=== PATIENT | female | born 1995 | race Caucasian/White ===

== ENCOUNTER 2019-08-10 11:13 | Emergency (ER) | payer SELFPAY ==
--- NOTE | 2019-08-10 11:15 | ER Document Report ---
HPI - HPI Time Seen by Provider: 08/10/19 11:14 Notes: 24-year-old female presents emergency room today with complaints of right ear pain for the last 4 days. Pain is 3/10, throbbing achy. Patient is not a smoker. Tried some [id number] drops without relief. Denies any trauma to ears. Worse with time, nothing makes better. Denies fevers, chills, chest pain,palpitations, shortness of breath, dyspnea, nausea, vomiting, diarrhea, abdominal pain, hematuria,blurred vision, double vision, loss of vision, speech changes, LH, dizziness, syncope, headaches, wheezing, ST, URI, neck pain, weakness, bowel or bladder dysfunction, saddle anesthesia, numbness or tingling in bilateral upper or lower extremities equally, muscle paralysis, weakness in bilateral upper or lower extremities equally or rash. Past Medical History - General Information source: Patient - Social History Smoking Status: Never Smoker Family History: Reviewed & Not Pertinent Vertical Provider Document - CONSTITUTIONAL Agree With Documented VS: Yes Exam Limitations: No Limitations General Appearance: WD/WN Notes: PHYSICAL EXAMINATION: reviewed vital signs by RN GENERAL: Well-appearing, well-nourished and in no acute distress. HEAD: Atraumatic, normocephalic. EYES: Pupils equal round and reactive to light, extraocular movements intact, conjunctiva are normal. ENT: Lateral EACs without inflammation or erythema. right TM with erythema and bulging, intact. Left TM with light reflex, no erythema TM intact. nares patent, oropharynx clear without exudates. Moist mucous membranes. NECK: Normal range of motion, supple without lymphadenopathy LUNGS: Breath sounds clear to auscultation bilaterally and equal. No wheezes rales or rhonchi. HEART: Regular rate and rhythm without murmurs ABDOMEN: Soft, nontender, nondistended abdomen. No guarding, no rebound. No masses appreciated. Female : deferred Musculoskeletal: Normal range of motion, no pitting or edema. No cyanosis. NEUROLOGICAL: Cranial nerves grossly intact. Normal speech, normal gait. Normal sensory, motor exams PSYCH: Normal mood, normal affect. SKIN: Warm, Dry, normal turgor, no rashes or lesions noted. Course - Re-evaluation Re-evalutation: 08/10/19 11:24 AFebrile vital stable no distress. Nurses notes reviewed. Presentation is most consistent with an acute otitis media. Clinical history as well as exam is most consistent with this diagnosis. Based on history and examination do not suspect an acute meningitis, encephalitis, peritonsillar abscess, or retropharyngeal a bscess. Child is otherwise well in appearance, no acute distress. Vitals otherwise within normal limits. The patient will be started on amoxicillin twice a day for 10 days. At this time will discharge with return precautions and follow-up recommendations. Verbal discharge instructions given a the bedside to the parents and opportunity for questions given. Medication warnings reviewed. Parents are in agreement with this plan and has verbalized understanding of return precautions and the need for primary care follow-up in the next 24-72 hours. Discharge - Discharge Clinical Impression: Right otitis media Condition: Stable Disposition: HOME, SELF-CARE Instructions: Otitis Media ([facility]) Additional Instructions: You have an ear infection. Please take antibiotics as directed with food. Follow-up with a provider within the next 7 to 10 days for reevaluation of your ear. Return immediately for any new or worsening symptoms. Follow up with primary care provider, call tomorrow to make followup appointment. Prescriptions: Amoxicillin 875 mg PO BID #20 tablet Referrals: TAMMY ROY MD [[facility]AFF] - Follow up as needed
[2019-08-10 11:23] VITALS: BP 140/76
== END 2019-08-10 11:48 | disposition home or self-care (01) ==
LOC: ER 11:13
DX: H66.91 Otitis media, unspecified, right ear (principal); H92.01 Otalgia, right ear
CPT/HCPCS: 99282

== ENCOUNTER 2019-10-16 18:07 | Emergency (ER) | payer SELFPAY ==
[2019-10-16 18:19] VITALS: BP 135/74
[2019-10-16] MEDS ORDERED: CIPROFLOXACIN HCL/DEXAMETH OTIC DROP 7.5 ML AS ONE (18:56)
--- NOTE | 2019-10-16 18:58 | ER Document Report ---
HPI - HPI Time Seen by Provider: 10/16/19 18:53 Pain Level: 4 Notes: Otherwise healthy 24-year-old female presenting to the emergency department with chief complaint of right ear pain that began this morning. Patient reports she has had some clear drainage from the area. She denies any fever. - ROS Systems Reviewed and Negative: Yes All other systems reviewed and negative - CONSTITUTIONAL Constitutional: DENIES: Fever - EENT EENT: REPORTS: Ear Pain - REPRODUCTIVE Reproductive: DENIES: : Past Medical History - General Information source: Patient - Social History Smoking Status: Unknown if Ever Smoked Frequency of alcohol use: None Drug Abuse: None Family History: Reviewed & Not Pertinent Patient has homicidal ideation: No - Medical History Medical History: Negative Surgical Hx: Negative Vertical Provider Document - CONSTITUTIONAL Notes: PHYSICAL EXAMINATION: GENERAL: Well-appearing, well-nourished and in no acute distress. HEAD: Atraumatic, normocephalic. EYES: Pupils equal round extraocular movements intact, conjunctiva are normal. ENT: Nares patent, right ear canal swollen and erythematous, TM unable to be visualized due to canal swelling. Left TM and canal unremarkable. No mastoid tenderness. NECK: Normal range of motion LUNGS: No respiratory distress Musculoskeletal: Normal range of motion NEUROLOGICAL: Normal speech, normal gait. PSYCH: Normal mood, normal affect. SKIN: Warm, Dry, normal turgor, no rashes or lesions noted. Course - Re-evaluation Re-evalutation: 10/16/19 18:58 Patient with otitis externa on exam. Patient will be started on Ciprodex eardrops. Patient given ED return precautions, patient verbalized understanding and agreement with same. - Vital Signs Vital signs: Temp Pulse Resp BP Pulse Ox 98.7 F 79 14 135/74 H 97 10/16/19 18:18 10/16/19 18:18 10/16/19 18:18 10/16/19 18:18 10/16/19 18:18 Discharge - Discharge Clinical Impression: Otitis externa Qualifiers: Otitis externa type: unspecified type Chronicity: acute Laterality: right Qualified Code(s): H60.501 - Unspecified acute noninfective otitis externa, right ear Condition: Stable Disposition: HOME, SELF-CARE Instructions: Otitis Externa ([facility]) Additional Instructions: Please instill 4 drops of the Ciprodex eardrops to the affected ear twice daily for the next 7 days. Take Tylenol or ibuprofen for pain. Return to the emergency department with any new or life-threatening complaints.
== END 2019-10-16 19:43 | disposition home or self-care (01) ==
LOC: ER 18:07
DX: H60.501 Unspecified acute noninfective otitis externa, right ear (principal); H92.01 Otalgia, right ear
CPT/HCPCS: 99282; J3490

== ENCOUNTER 2019-10-19 09:52 | Emergency (ER) | payer SELFPAY ==
[2019-10-19 09:57] VITALS: BP 120/70
[2019-10-19] MEDS ORDERED: METHYLPREDNISOLONE ACETATE INJ 40 MG/1 ML ML IM ONE (11:08)
[2019-10-19] MEDS ORDERED: DEXAMETHASONE SOD PHOS INJ 10 MG/1 ML VIAL IM ONE (11:08)
--- NOTE | 2019-10-19 11:11 | ER Document Report ---
HPI - HPI Patient complains to provider of: ear pain Time Seen by Provider: 10/19/19 11:04 Onset: Just prior to arrival Pain Level: 4 Associated Symptoms: None Exacerbated by: Denies - EENT EENT: REPORTS: Ear Pain - left ear - REPRODUCTIVE Reproductive: DENIES: : Past Medical History - General Information source: Patient - Social History Smoking Status: Never Smoker Frequency of alcohol use: None Drug Abuse: None Family History: Reviewed & Not Pertinent Patient has homicidal ideation: No Past Surgical History: Reports: Hx Orthopedic Surgery - right clavicle Vertical Provider Document - CONSTITUTIONAL Agree With Documented VS: Yes - HEENT HEENT: Atraumatic, Conjuctival Injection, Normocephalic, PERRLA Notes: Left ear canal erythemic pruritic - NECK Neck: Normal Inspection, Supple - RESPIRATORY Respiratory: Breath Sounds Normal, No Respiratory Distress - CARDIOVASCULAR Cardiovascular: Regular Rate, Regular Rhythm - GI/ABDOMEN Gastrointestinal: Abdomen Soft, Abdomen Non-Tender - BACK Back: Normal Inspection - MUSCULOSKELETAL/EXTREMETIES Musculoskeletal/Extremeties: MAEW Course - Vital Signs Vital signs: Temp Pulse Resp BP Pulse Ox 97.8 F 90 16 120/70 99 10/19/19 11:00 10/19/19 09:56 10/19/19 09:56 10/19/19 09:56 10/19/19 09:56 Discharge - Discharge Clinical Impression: Otitis externa Qualifiers: Otitis externa type: unspecified type Chronicity: acute Laterality: left Qualified Code(s): H60.502 - Unspecified acute noninfective otitis externa, left ear Disposition: HOME, SELF-CARE Instructions: Use of Ear Drops ([facility]), Otitis Externa ([facility]) Prescriptions: Amoxicillin/Potassium Clav [Augmentin 875-125 Tablet] 1 tab PO Q12 #20 tablet Ciprofloxacin HCl/Dexameth [Ciprodex Otic Suspension] 7.5 ml OT Q12 #7 drops.susp
== END 2019-10-19 11:30 | disposition home or self-care (01) ==
LOC: ER 09:52
DX: H60.502 Unspecified acute noninfective otitis externa, left ear (principal); H92.02 Otalgia, left ear
CPT/HCPCS: 99282; 96372; J1030; J1100